=== PATIENT | male | born 1960 | race Caucasian/White ===

== ENCOUNTER → 2017-08-23 | Outpatient (CLI) | payer OTHER ==
[~2017-08-23] VITALS: Ht 170.2 cm; Wt 88.5 kg
[~2017-08-23] MED LIST: LIPITOR10 MG PO
== END | disposition home or self-care (01) ==
LOC: AMB 07:30
PROC: 0DBP8ZX Excision of Rectum, Via Natural or Artificial Opening Endoscopic, Diagnostic (ICD-10-PCS; principal; 2017-08-23)
DX: Z12.11 Encounter for screening for malignant neoplasm of colon (principal); Z86.010 Personal history of colon polyps; K62.1 Rectal polyp; K64.8 Other hemorrhoids
CPT/HCPCS: 88305; J2250